=== PATIENT | female | born 1960 | race Caucasian/White ===

== ENCOUNTER → 2020-04-28 | Outpatient (CLI) | payer OTHER ==
[2020-04-29 12:10] LABS: Candida species (DNA Probe) Negative (NEGATIVE); G. vaginalis (DNA Probe) Negative (NEGATIVE); T. vaginalis (DNA Probe) Negative (NEGATIVE)
== END ==
LOC: LAB 13:41 → LAB SHORT 13:41
PROVIDERS: Nurse Practitioner Family
DX: Z12.4 Encounter for screening for malignant neoplasm of cervix (principal); N89.8 Other specified noninflammatory disorders of vagina
CPT/HCPCS: 87070; 87077; 87186; 87205; 87480; 87510; 87660; G0145

== ENCOUNTER 2020-10-15 08:21 | Day surgery (SDC) | payer OTHER | END 2020-10-15 22:44 | disposition home or self-care (01) | LOC: MOI MAM 08:21 | DX: N60.22 Fibroadenosis of left breast (principal) | CPT/HCPCS: 19083; 19084; 77065; 88305; 88342; A4648; G0279 ==